=== PATIENT | male | born 1960 | race Two or more races ===

== ENCOUNTER 2022-12-22 13:40 | Emergency (ER) | payer OTHER ==
[~2022-12-22] VITALS: Ht 190.5 cm; Wt 122.5 kg
[2022-12-22] MEDS ORDERED: XARELTO20 MG PO (13:59)
[2022-12-22] MEDS ORDERED: LABETALOL 11 MG/1 ML PO (14:00)
[2022-12-22] MEDS ORDERED: VENLAFAXINE HC150 M1 PO (14:01)
[2022-12-22] MEDS ORDERED: CARVEDILOL ER40 MG PO (14:03)
== END 2022-12-22 20:35 | disposition home or self-care (01) ==
LOC: ER 13:40
PROVIDERS: Emergency Medicine
DX: R07.89 Other chest pain (principal); I10 Essential (primary) hypertension; Z88.8 Allergy status to other drugs, medicaments and biological substances; Z20.822 Contact with and (suspected) exposure to COVID-19